=== PATIENT | female | born 1970 | race Caucasian/White ===

== ENCOUNTER → 2022-12-09 | Day surgery (SDC) | payer OTHER ==
[~2022-12-09] VITALS: Ht 152.4 cm; Wt 55.8 kg
[~2022-12-09] MED LIST: MIDAZOLAM 5 MG/5 ML VIAL ONE; diphenhydrAMINE 50 MG/ML VIAL ONE; fentaNYL citrate 0.05 MG/ML VIAL ONE
== END | disposition home or self-care (01) ==
LOC: MDS 09:52 → MMU 09:54
PROVIDERS: ATTEND Internal Medicine Gastroenterology
DX: Z12.11 Encounter for screening for malignant neoplasm of colon (principal); E11.9 Type 2 diabetes mellitus without complications; L40.9 Psoriasis, unspecified; Z79.84 Long term (current) use of oral hypoglycemic drugs
CPT/HCPCS: 45378; 82948; J2250; J3010; J7030; J1200